=== PATIENT | female | born 1955 | race Caucasian/White ===

== ENCOUNTER 2020-11-07 18:26 | Inpatient (IN) | payer MEDICARE, MEDICAID ==
[~2020-11-07] VITALS: Ht 162.6 cm; Wt 106.1 kg
[~2020-11-07 18:26] MED LIST: ASPI-1406 PO; KEPP250 PO
[2020-11-07] MEDS ORDERED: CLONIDINE 0.1MG TABLET PO PRN (20:30)
[2020-11-07] MEDS ORDERED: IPRATROPIUM/ALBUTEROL 0.5-3(2.5)MG/3ML NEB HHN PRN (20:30)
[2020-11-07] MEDS ORDERED: NALOXONE HCL 0.4 MG/ML 1ML VIAL IV PRN (20:30)
[2020-11-07] MEDS ORDERED: MAGNESIUM/ALUMINUM HYDROXIDE/SIMETHICONE 30ML UDC PO PRN (20:30)
[2020-11-07] MEDS ORDERED: LEVETIRACETAM 250 MG in SODIUM CHLORIDE 0.9% 100 ML IV SCH (20:30)
[2020-11-07] MEDS ORDERED: ONDANSETRON HCL 4MG/2ML INJ IV PRN (20:30)
[2020-11-07] MEDS ORDERED: DEXTROSE 50% WATER 50ML SYRINGE IV PRN (20:30)
[2020-11-07] MEDS ORDERED: CEFTRIAXONE 1 G PREMIX 50 ML IV SCH (20:30)
[2020-11-07] MEDS ORDERED: DOCUSATE SODIUM 100MG CAPSULE PO PRN (20:30)
[2020-11-07 21:00] VITALS: BP 141/66
[2020-11-07] MEDS ORDERED: NALOXONE HCL 0.4MG/ML VIAL IV PRN (21:30)
[2020-11-07 22:00] VITALS: BP 141/66
[2020-11-07] MEDS: SODIUM CHLORIDE 0.9% 1,000 ML IV SCH (22:00)
[2020-11-07] MEDS: HYDROCODONE/ACETAMINOPHEN 5/325MG TABLET PO PRN (23:24)
[2020-11-07] MEDS: POLYETHYLENE GLYCOL 3350 (17GM) 1 DOSE PACK PO SCH (23:26)
[2020-11-07] MEDS: LEVETIRACETAM 500MG/5ML CUP PO SCH (23:26)
[2020-11-08] MEDS: HYDROCODONE/ACETAMINOPHEN 5/325MG TABLET PO PRN ×5 (05:52→21:48)
[2020-11-08] MEDS: BLOOD SUGAR DIAGNOSTIC STRIP TEST SCH ×4 (06:01→21:48)
[2020-11-08 07:21] LABS: BASOPHILS % 0.7 % (0.0-2.0); EOSINOPHILS % 4.7 % (0.0-5.0); HEMATOCRIT. 32.5 % (36.0-48.0); HEMOGLOBIN. 10.7 g/dL (12.0-16.0); LYMPHOCYTES % 37.5 % (20.0-50.0); MEAN PLATELET VOLUME 8.7 fl (7.4-10.4); MONOCYTES % 7.6 % (2.0-8.0); NEUTROPHILS % 49.5 % (40.0-76.0); PLATELET 114 x1000/uL (130-400); RED BLOOD CELL COUNT 3.46 mill/uL (4.2-5.4); RED CELL DISTRIBUTION WIDTH 14.9 % (11.6-14.6)
[2020-11-08 07:31] VITALS: BP 126/47
[2020-11-08 07:45] LABS: CHLORIDE 109 mEq/L (98-107)
[2020-11-08 07:55] LABS: TOTAL IRON BINDING CAPACITY 310 ug/dL (250-450)
[2020-11-08] MEDS: DOCUSATE SODIUM 100MG CAPSULE PO SCH ×2 (08:46→17:38)
[2020-11-08] MEDS: LEVETIRACETAM 500MG/5ML CUP PO SCH ×2 (08:46→21:46)
[2020-11-08] MEDS: ASPIRIN 81MG EC TABLET PO SCH (08:46)
[2020-11-08] MEDS: INSULIN LISPRO 100 UNITS/ML SUBCUT SCH ×4 (08:52→21:55)
[2020-11-08] MEDS: SODIUM CHLORIDE 0.9% 1,000 ML IV SCH ×2 (09:56→23:57)
[2020-11-08] MEDS: LIDOCAINE 5% PATCH TOP SCH (09:57)
[2020-11-08] MEDS: CEFTRIAXONE 1,000 MG in DEXTROSE 5% WATER 50 ML IV SCH (12:36)
[2020-11-08] MEDS: LACTULOSE 20G/30ML UDC PO SCH ×2 (17:40→21:45)
[2020-11-08 20:00] VITALS: BP 135/62
[2020-11-08] MEDS: POLYETHYLENE GLYCOL 3350 (17GM) 1 DOSE PACK PO SCH (21:46)
[2020-11-08] MEDS ORDERED: IOHEXOL-350 100 ML BOTTLE ONE (23:27)
[2020-11-09] MEDS: HYDROCODONE/ACETAMINOPHEN 5/325MG TABLET PO PRN ×4 (04:29→20:08)
[2020-11-09] MEDS: BLOOD SUGAR DIAGNOSTIC STRIP TEST SCH ×4 (05:50→20:11)
[2020-11-09] MEDS: INSULIN LISPRO 100 UNITS/ML SUBCUT SCH ×4 (06:30→21:46)
[2020-11-09 08:25] VITALS: BP 106/55
[2020-11-09] MEDS: LEVETIRACETAM 500MG/5ML CUP PO SCH ×2 (09:10→20:07)
[2020-11-09] MEDS: ASPIRIN 81MG EC TABLET PO SCH (09:11)
[2020-11-09] MEDS: DOCUSATE SODIUM 100MG CAPSULE PO SCH ×2 (09:11→16:50)
[2020-11-09] MEDS: LIDOCAINE 5% PATCH TOP SCH (09:12)
[2020-11-09] MEDS ORDERED: INSULIN GLARGINE UD 100 UNITS/ML SYR SUBCUT SCH (11:00)
[2020-11-09] MEDS: SODIUM CHLORIDE 0.9% 1,000 ML IV SCH ×2 (11:30→23:54)
[2020-11-09] MEDS: ACETAMINOPHEN 325MG TABLET PO PRN (12:11)
[2020-11-09] MEDS: CEFTRIAXONE 1,000 MG in DEXTROSE 5% WATER 50 ML IV SCH (14:07)
[2020-11-09 20:00] VITALS: BP 133/47
[2020-11-09] MEDS: POLYETHYLENE GLYCOL 3350 (17GM) 1 DOSE PACK PO SCH (20:08)
[2020-11-10] MEDS: BLOOD SUGAR DIAGNOSTIC STRIP TEST SCH ×4 (06:01→20:58)
[2020-11-10] MEDS: HYDROCODONE/ACETAMINOPHEN 5/325MG TABLET PO PRN ×4 (06:01→20:59)
[2020-11-10] MEDS: INSULIN LISPRO 100 UNITS/ML SUBCUT SCH ×4 (06:34→21:10)
[2020-11-10 08:23] VITALS: BP 113/49
[2020-11-10] MEDS: ASPIRIN 81MG EC TABLET PO SCH (08:47)
[2020-11-10] MEDS: DOCUSATE SODIUM 100MG CAPSULE PO SCH ×2 (08:47→16:54)
[2020-11-10] MEDS: LEVETIRACETAM 500MG/5ML CUP PO SCH ×2 (08:47→20:58)
[2020-11-10] MEDS: LIDOCAINE 5% PATCH TOP SCH (08:48)
[2020-11-10] MEDS: SODIUM CHLORIDE 0.9% 1,000 ML IV SCH ×2 (12:27→21:06)
[2020-11-10] MEDS: ACETAMINOPHEN 325MG TABLET PO PRN (15:43)
[2020-11-10] MEDS: METFORMIN HCL 500MG TABLET PO SCH (16:55)
[2020-11-10 20:00] VITALS: BP 141/61
[2020-11-10] MEDS: POLYETHYLENE GLYCOL 3350 (17GM) 1 DOSE PACK PO SCH (20:58)
[2020-11-11] MEDS: BLOOD SUGAR DIAGNOSTIC STRIP TEST SCH ×4 (06:09→20:59)
[2020-11-11] MEDS: INSULIN LISPRO 100 UNITS/ML SUBCUT SCH ×4 (06:25→21:11)
[2020-11-11 08:00] VITALS: BP 124/77
[2020-11-11] MEDS: DOCUSATE SODIUM 100MG CAPSULE PO SCH ×2 (08:25→17:00)
[2020-11-11] MEDS: METFORMIN HCL 500MG TABLET PO SCH ×2 (08:25→17:00)
[2020-11-11] MEDS: ASPIRIN 81MG EC TABLET PO SCH (08:25)
[2020-11-11] MEDS: LIDOCAINE 5% PATCH TOP SCH (08:26)
[2020-11-11] MEDS: LEVETIRACETAM 500MG/5ML CUP PO SCH ×2 (09:12→20:59)
[2020-11-11] MEDS: HYDROCODONE/ACETAMINOPHEN 5/325MG TABLET PO PRN ×2 (12:36→18:00)
[2020-11-11] MEDS: SODIUM CHLORIDE 0.9% 1,000 ML IV SCH (14:10)
[2020-11-11 20:00] VITALS: BP 124/67
[2020-11-11] MEDS: POLYETHYLENE GLYCOL 3350 (17GM) 1 DOSE PACK PO SCH (20:59)
[2020-11-12] MEDS: SODIUM CHLORIDE 0.9% 1,000 ML IV SCH ×2 (04:30→16:49)
[2020-11-12] MEDS: BLOOD SUGAR DIAGNOSTIC STRIP TEST SCH ×4 (06:06→21:20)
[2020-11-12] MEDS: INSULIN LISPRO 100 UNITS/ML SUBCUT SCH ×4 (06:25→21:50)
[2020-11-12 06:44] LABS: BASOPHILS % 0.7 % (0.0-2.0); EOSINOPHILS % 2.8 % (0.0-5.0); HEMATOCRIT. 32.8 % (36.0-48.0); HEMOGLOBIN. 11.2 g/dL (12.0-16.0); LYMPHOCYTES % 36.7 % (20.0-50.0); MEAN CORPUSCULAR HEMOGLOBIN 31.9 pg (28.0-32.0); MEAN CORPUSCULAR VOLUME 93.7 fL (81.0-99.0); MEAN PLATELET VOLUME 8.4 fl (7.4-10.4); MONOCYTES % 7.8 % (2.0-8.0); PLATELET 119 x1000/uL (130-400); RED CELL DISTRIBUTION WIDTH 14.7 % (11.6-14.6)
[2020-11-12 06:55] LABS: CHLORIDE 110 mEq/L (98-107)
[2020-11-12 08:00] VITALS: BP 118/40
[2020-11-12] MEDS: DOCUSATE SODIUM 100MG CAPSULE PO SCH ×2 (08:45→16:49)
[2020-11-12] MEDS: METFORMIN HCL 500MG TABLET PO SCH ×2 (08:45→16:49)
[2020-11-12] MEDS: ASPIRIN 81MG EC TABLET PO SCH (08:45)
[2020-11-12] MEDS: LIDOCAINE 5% PATCH TOP SCH (08:46)
[2020-11-12] MEDS: LEVETIRACETAM 500MG/5ML CUP PO SCH ×2 (08:46→21:43)
[2020-11-12] MEDS: HYDROCODONE/ACETAMINOPHEN 5/325MG TABLET PO PRN ×2 (08:48→14:08)
[2020-11-12] MEDS ORDERED: TRIAMCINOLONE ACETONIDE 40MG/ML 1ML VIAL IM SCH (10:00)
[2020-11-12] MEDS ORDERED: BUPIVACAINE HCL 0.5% (5MG/ML) 50ML IR SCH (10:00)
[2020-11-12] MEDS ORDERED: LIDOCAINE HCL 1% 20ML VIAL (Pyxis) INJ INFIL SCH (10:00)
[2020-11-12] MEDS ORDERED: ETHYL CHLORIDE CAN TOP SCH (10:00)
[2020-11-12 19:10] LABS: 25-HYDROXY VITAMIN D3 10 ng/mL (.)
[2020-11-12 20:00] VITALS: BP 125/66
[2020-11-12] MEDS: POLYETHYLENE GLYCOL 3350 (17GM) 1 DOSE PACK PO SCH (21:42)
[2020-11-12] MEDS: ACETAMINOPHEN 325MG TABLET PO PRN (21:43)
[2020-11-13] MEDS: SODIUM CHLORIDE 0.9% 1,000 ML IV SCH ×3 (05:58→19:34)
[2020-11-13] MEDS: BLOOD SUGAR DIAGNOSTIC STRIP TEST SCH ×4 (05:59→21:55)
[2020-11-13] MEDS: INSULIN LISPRO 100 UNITS/ML SUBCUT SCH ×4 (06:02→22:12)
[2020-11-13 07:58] VITALS: BP 98/42
[2020-11-13] MEDS: HYDROCODONE/ACETAMINOPHEN 5/325MG TABLET PO PRN ×3 (08:27→22:17)
[2020-11-13] MEDS: DOCUSATE SODIUM 100MG CAPSULE PO SCH ×2 (09:00→17:18)
[2020-11-13] MEDS: LEVETIRACETAM 500MG/5ML CUP PO SCH ×2 (09:03→22:07)
[2020-11-13] MEDS: METFORMIN HCL 500MG TABLET PO SCH ×2 (09:03→17:17)
[2020-11-13] MEDS: ASPIRIN 81MG EC TABLET PO SCH (09:03)
[2020-11-13] MEDS: LIDOCAINE 5% PATCH TOP SCH (09:04)
[2020-11-13] MEDS ORDERED: ERGOCALCIFEROL 50000UNITS CAPSULE PO SCH (14:45)
[2020-11-13 20:00] VITALS: BP 130/69
[2020-11-13] MEDS: POLYETHYLENE GLYCOL 3350 (17GM) 1 DOSE PACK PO SCH (22:06)
[2020-11-14] MEDS: BLOOD SUGAR DIAGNOSTIC STRIP TEST SCH ×4 (06:03→21:28)
[2020-11-14] MEDS: INSULIN LISPRO 100 UNITS/ML SUBCUT SCH ×4 (06:15→21:46)
[2020-11-14] MEDS ORDERED: NALOXONE HCL 0.4MG/ML VIAL IV PRN (07:45)
[2020-11-14 08:26] VITALS: BP 116/48
[2020-11-14] MEDS: METFORMIN HCL 500MG TABLET PO SCH ×2 (08:56→16:38)
[2020-11-14] MEDS: HYDROCODONE/ACETAMINOPHEN 5/325MG TABLET PO PRN ×3 (08:56→21:34)
[2020-11-14] MEDS: ASPIRIN 81MG EC TABLET PO SCH (08:56)
[2020-11-14] MEDS: LEVETIRACETAM 500MG/5ML CUP PO SCH ×2 (08:59→21:33)
[2020-11-14] MEDS: DOCUSATE SODIUM 100MG CAPSULE PO SCH ×2 (09:00→16:38)
[2020-11-14] MEDS: LIDOCAINE 5% PATCH TOP SCH (09:02)
[2020-11-14] MEDS ORDERED: INSULIN GLARGINE UD 100 UNITS/ML SYR SUBCUT SCH (10:00)
[2020-11-14] MEDS: SODIUM CHLORIDE 0.9% 1,000 ML IV SCH (16:30)
[2020-11-14 20:00] VITALS: BP 127/50
[2020-11-14] MEDS: POLYETHYLENE GLYCOL 3350 (17GM) 1 DOSE PACK PO SCH (21:00)
[2020-11-15] MEDS: SODIUM CHLORIDE 0.9% 1,000 ML IV SCH ×2 (05:00→17:25)
[2020-11-15] MEDS: BLOOD SUGAR DIAGNOSTIC STRIP TEST SCH ×4 (06:02→21:10)
[2020-11-15] MEDS: INSULIN LISPRO 100 UNITS/ML SUBCUT SCH ×7 (06:33→22:09)
[2020-11-15] MEDS: HYDROCODONE/ACETAMINOPHEN 5/325MG TABLET PO PRN ×3 (07:38→21:10)
[2020-11-15 08:26] VITALS: BP 131/57
[2020-11-15] MEDS: DOCUSATE SODIUM 100MG CAPSULE PO SCH ×2 (08:40→17:24)
[2020-11-15] MEDS: METFORMIN HCL 500MG TABLET PO SCH ×2 (08:40→17:24)
[2020-11-15] MEDS: LIDOCAINE 5% PATCH TOP SCH (08:40)
[2020-11-15] MEDS: ASPIRIN 81MG EC TABLET PO SCH (08:40)
[2020-11-15] MEDS: LEVETIRACETAM 500MG/5ML CUP PO SCH ×2 (08:41→21:07)
[2020-11-15] MEDS: INSULIN GLARGINE UD 100 UNITS/ML SYR SUBCUT SCH (10:24)
[2020-11-15] MEDS: POLYETHYLENE GLYCOL 3350 (17GM) 1 DOSE PACK PO SCH (21:07)
[2020-11-16 00:24] VITALS: BP 112/34
[2020-11-16] MEDS: SODIUM CHLORIDE 0.9% 1,000 ML IV SCH ×2 (06:00→18:30)
[2020-11-16] MEDS: BLOOD SUGAR DIAGNOSTIC STRIP TEST SCH ×4 (06:10→21:26)
[2020-11-16] MEDS: HYDROCODONE/ACETAMINOPHEN 5/325MG TABLET PO PRN ×3 (06:24→21:26)
[2020-11-16] MEDS: INSULIN LISPRO 100 UNITS/ML SUBCUT SCH ×7 (06:39→21:44)
[2020-11-16 08:00] VITALS: BP 145/71
[2020-11-16] MEDS: ASPIRIN 81MG EC TABLET PO SCH (08:58)
[2020-11-16] MEDS: METFORMIN HCL 500MG TABLET PO SCH ×2 (08:58→17:02)
[2020-11-16] MEDS: LEVETIRACETAM 500MG/5ML CUP PO SCH ×2 (08:58→21:21)
[2020-11-16] MEDS: DOCUSATE SODIUM 100MG CAPSULE PO SCH ×2 (08:58→17:02)
[2020-11-16] MEDS: LIDOCAINE 5% PATCH TOP SCH (09:07)
[2020-11-16] MEDS: INSULIN GLARGINE UD 100 UNITS/ML SYR SUBCUT SCH (11:08)
[2020-11-16] MEDS ORDERED: DOCU-150 PO (13:44)
[2020-11-16] MEDS ORDERED: LANTUSUD SUBCUT (13:44)
[2020-11-16] MEDS ORDERED: METF500T PO (13:44)
[2020-11-16] MEDS ORDERED: KEPPSOL PO (13:44)
[2020-11-16] MEDS ORDERED: INSLIS SUBCUT ×2 (13:44)
[2020-11-16] MEDS ORDERED: ASPI-1406 PO (13:44)
[2020-11-16 20:00] VITALS: BP 151/48
[2020-11-16] MEDS: POLYETHYLENE GLYCOL 3350 (17GM) 1 DOSE PACK PO SCH ×2 (21:26→21:33)
[2020-11-17] MEDS: INSULIN LISPRO 100 UNITS/ML SUBCUT SCH ×4 (06:14→12:04)
[2020-11-17] MEDS: BLOOD SUGAR DIAGNOSTIC STRIP TEST SCH ×2 (06:14→11:55)
[2020-11-17] MEDS: SODIUM CHLORIDE 0.9% 1,000 ML IV SCH (06:14)
[2020-11-17 07:48] VITALS: BP 108/49
[2020-11-17 11:43] VITALS: BP 108/49
[2020-11-17] MEDS: DOCUSATE SODIUM 100MG CAPSULE PO SCH (11:47)
[2020-11-17] MEDS: METFORMIN HCL 500MG TABLET PO SCH (11:47)
[2020-11-17] MEDS: ASPIRIN 81MG EC TABLET PO SCH (11:47)
[2020-11-17] MEDS: LEVETIRACETAM 500MG/5ML CUP PO SCH (11:48)
[2020-11-17 11:50] VITALS: BP 108/49
[2020-11-17] MEDS: LIDOCAINE 5% PATCH TOP SCH (11:50)
[2020-11-17] MEDS: INSULIN GLARGINE UD 100 UNITS/ML SYR SUBCUT SCH (11:53)
== END 2020-11-17 14:00 | disposition home health service (06) | DRG 56 ==
PROVIDERS: ADMIT Physical Medicine & Rehabilitation Spinal Cord Injury Medicine; ATTEND Internal Medicine
PROC: 3E0U33Z Introduction of Anti-inflammatory into Joints, Percutaneous Approach (ICD-10-PCS; principal; 2020-11-13)
PROC: 3E0U3BZ Introduction of Anesthetic Agent into Joints, Percutaneous Approach (ICD-10-PCS; 2020-11-13)
DX: I69.351 Hemiplegia and hemiparesis following cerebral infarction affecting right dominant side (principal); I63.9 Cerebral infarction, unspecified; N39.0 Urinary tract infection, site not specified; N17.9 Acute kidney failure, unspecified; R44.0 Auditory hallucinations; Z68.41 Body mass index [BMI] 40.0-44.9, adult; R47.01 Aphasia; G40.909 Epilepsy, unspecified, not intractable, without status epilepticus; E78.00 Pure hypercholesterolemia, unspecified; G89.4 Chronic pain syndrome; Z96.642 Presence of left artificial hip joint; Z96.653 Presence of artificial knee joint, bilateral; M54.2 Cervicalgia; D69.6 Thrombocytopenia, unspecified; R53.81 Other malaise; D64.9 Anemia, unspecified; M75.41 Impingement syndrome of right shoulder; E11.65 Type 2 diabetes mellitus with hyperglycemia; I12.9 Hypertensive chronic kidney disease with stage 1 through stage 4 chronic kidney disease, or unspecified chronic kidney disease; F19.10 Other psychoactive substance abuse, uncomplicated; F16.10 Hallucinogen abuse, uncomplicated; Z60.2 Problems related to living alone; R26.89 Other abnormalities of gait and mobility; I27.21 Secondary pulmonary arterial hypertension; H53.2 Diplopia; E66.01 Morbid (severe) obesity due to excess calories; M15.9 Polyosteoarthritis, unspecified; E55.9 Vitamin D deficiency, unspecified; G47.30 Sleep apnea, unspecified; L30.9 Dermatitis, unspecified; M54.5 Low back pain; I67.1 Cerebral aneurysm, nonruptured; F39 Unspecified mood [affective] disorder; N18.2 Chronic kidney disease, stage 2 (mild); E11.22 Type 2 diabetes mellitus with diabetic chronic kidney disease; M75.01 Adhesive capsulitis of right shoulder; Z80.3 Family history of malignant neoplasm of breast; Z82.49 Family history of ischemic heart disease and other diseases of the circulatory system; Z96.82 Presence of neurostimulator; Z79.899 Other long term (current) drug therapy; Z79.82 Long term (current) use of aspirin; I69.322 Dysarthria following cerebral infarction; Z83.3 Family history of diabetes mellitus; Z90.710 Acquired absence of both cervix and uterus; R47.1 Dysarthria and anarthria
CPT/HCPCS: 36415; 70496; 73030; 80053; 82306; 82565; 82607; 82728; 82746; 82962; 83540; 83550; 84134; 84443; 84520; 85025; 92523; 92610; 93970; 97110; 97112; 97116; 97129; 97130; 97162; 97166; 97530; 97535; J0696; J1815; J3301; J3490; J7030; J7060; Q9967

== ENCOUNTER 2020-11-19 12:12 | Inpatient (IN) | payer MEDICARE, MEDICAID ==
[~2020-11-19] VITALS: Ht 162.6 cm; Wt 103.4 kg
[2020-11-19] MEDS: INSULIN GLARGINE UD 100 UNITS/ML SYR SUBCUT SCH (10:00)
[~2020-11-19 12:12] MED LIST changes: +DOCU-150 PO; +INSLIS SUBCUT; -KEPP250 PO; +KEPPSOL PO; +LANTUSUD SUBCUT; +METF500T PO
[2020-11-19] MEDS ORDERED: ASPIRIN 81MG TABLET PO ONE (14:15)
[2020-11-19 14:37] LABS: CHLORIDE 110 mEq/L (98-107)
[2020-11-19 14:41] LABS: ETHANOL BLOOD < 10 mg/dL; INR 1.1; PROTHROMBIN TIME 11.7 sec (9.6-11.0)
[2020-11-19 14:44] LABS: LDL CHOLESTEROL 82 mg/dL (5-100)
[2020-11-19 15:17] LABS: BASOPHILS % 0.9 % (0.0-2.0); HEMATOCRIT. 36.2 % (36.0-48.0); HEMOGLOBIN. 12.2 g/dL (12.0-16.0); MEAN CORPUSCULAR HEMOGLOBIN 31.9 pg (28.0-32.0); MEAN CORPUSCULAR VOLUME 94.9 fL (81.0-99.0); MONOCYTES % 8.1 % (2.0-8.0); PLATELET 174 x1000/uL (130-400); RED BLOOD CELL COUNT 3.82 mill/uL (4.2-5.4); RED CELL DISTRIBUTION WIDTH 14.9 % (11.6-14.6)
[2020-11-19] MEDS ORDERED: ACETAMINOPHEN 325MG TABLET PO PRN ×2 (16:45)
[2020-11-19] MEDS ORDERED: GUAIFENESIN 200MG/10ML SUGAR FREE UDC PO PRN (16:45)
[2020-11-19] MEDS ORDERED: MAGNESIUM/ALUMINUM HYDROXIDE/SIMETHICONE 30ML UDC PO PRN (16:45)
[2020-11-19] MEDS ORDERED: DEXTROSE 50% WATER 50ML SYRINGE IV PRN (16:45)
[2020-11-19] MEDS ORDERED: NA PHOS,M-B/NA PHOS,DI-BA ENEMA 118ML PR PRN (16:45)
[2020-11-19] MEDS ORDERED: CLONIDINE 0.1MG TABLET PO PRN (16:45)
[2020-11-19] MEDS ORDERED: IPRATROPIUM/ALBUTEROL 0.5-3(2.5)MG/3ML NEB NEB PRN (16:45)
[2020-11-19] MEDS ORDERED: NITROGLYCERIN 0.4MG TABLET SL SL PRN (16:45)
[2020-11-19] MEDS ORDERED: DOCUSATE SODIUM 100MG CAPSULE PO PRN (16:45)
[2020-11-19] MEDS ORDERED: ONDANSETRON HCL 4MG/2ML INJ IV PRN (16:45)
[2020-11-19] MEDS ORDERED: ENOXAPARIN 30MG/0.3ML SYR SUBCUT SCH (20:00)
[2020-11-19] MEDS ORDERED: ZOLPIDEM TARTRATE 5MG TABLET PO PRN (21:00)
[2020-11-19] MEDS: BLOOD SUGAR DIAGNOSTIC STRIP TEST SCH (21:00)
[2020-11-19 21:34] LABS: FOLIC ACID (FOLATE) SERUM 13.7 ng/mL (>5.38)
[2020-11-19 22:00] VITALS: BP 118/46
[2020-11-19] MEDS: FAMOTIDINE 20MG TABLET PO SCH (23:00)
[2020-11-19] MEDS: ASCORBIC ACID 500 MG TABLET PO SCH (23:00)
[2020-11-19] MEDS: LEVETIRACETAM 500MG TABLET PO SCH (23:00)
[2020-11-19] MEDS: SODIUM CHLORIDE 0.9% 1,000 ML IV SCH (23:01)
[2020-11-20] VITALS: BP 115/51
[2020-11-20] MEDS ORDERED: CLOP75TA4 PO (00:21)
[2020-11-20 04:00] VITALS: BP 115/82
[2020-11-20] MEDS: INSULIN LISPRO 100 UNITS/ML SUBCUT SCH ×3 (06:00→18:30)
[2020-11-20] MEDS: BLOOD SUGAR DIAGNOSTIC STRIP TEST SCH ×4 (06:01→21:23)
[2020-11-20 06:32] LABS: BASOPHILS % 1.1 % (0.0-2.0); EOSINOPHILS % 1.1 % (0.0-5.0); HEMATOCRIT. 39.2 % (36.0-48.0); HEMOGLOBIN. 12.9 g/dL (12.0-16.0); LYMPHOCYTES % 27.9 % (20.0-50.0); MEAN CORPUSCULAR HEMOGLOBIN 31.2 pg (28.0-32.0); MEAN CORPUSCULAR VOLUME 95.1 fL (81.0-99.0); MEAN PLATELET VOLUME 8.9 fl (7.4-10.4); MONOCYTES % 8.2 % (2.0-8.0); NEUTROPHILS % 61.7 % (40.0-76.0); PLATELET 145 x1000/uL (130-400); RED BLOOD CELL COUNT 4.12 mill/uL (4.2-5.4); RED CELL DISTRIBUTION WIDTH 14.5 % (11.6-14.6)
[2020-11-20 07:22] LABS: CHLORIDE 113 mEq/L (98-107)
[2020-11-20 07:37] LABS: PHOSPHORUS 3.7 mg/dL (2.5-4.9)
[2020-11-20 07:39] LABS: CREATINE KINASE 103 IU/L (26-192)
[2020-11-20 07:43] LABS: CREATINE KINASE MB FRACTION < 1.0 ng/mL (0.5-3.6)
[2020-11-20 08:00] VITALS: BP 110/56
[2020-11-20] MEDS: ASCORBIC ACID 500 MG TABLET PO SCH ×2 (08:50→21:23)
[2020-11-20] MEDS: LEVETIRACETAM 500MG TABLET PO SCH ×2 (08:50→21:22)
[2020-11-20] MEDS: SODIUM CHLORIDE 0.9% 1,000 ML IV SCH (08:50)
[2020-11-20] MEDS: ZINC SULFATE 220 MG ( 50 ) CAPSULE PO SCH (08:50)
[2020-11-20] MEDS: KETOROLAC 15MG/ML VIAL IV PRN ×2 (08:50→21:22)
[2020-11-20] MEDS: CHOLECALCIFEROL (D3) 1000 UNIT TABLET PO SCH (08:50)
[2020-11-20] MEDS: ASPIRIN 325MG EC TABLET PO SCH (08:50)
[2020-11-20] MEDS: INSULIN GLARGINE UD 100 UNITS/ML SYR SUBCUT SCH (09:13)
[2020-11-20 10:20] LABS: CLARITY URINE CLEAR (CLEAR); COLOR URINE YELLOW (YELLOW); KETONES URINE NEGATIVE (NEGATIVE); LEUKOCYTE ESTERASE URINE NEGATIVE (NEGATIVE); NITRITE URINE NEGATIVE (NEGATIVE); OCCULT BLOOD URINE NEGATIVE (NEGATIVE); PROTEIN URINE NEGATIVE (NEGATIVE); SPECIFIC GRAVITY URINE 1.017 (1.005-1.030)
[2020-11-20] MEDS ORDERED: SODIUM POLYSTYRENE SULFONATE 15 G/60 ML BOT PO SCH (11:00)
[2020-11-20 12:00] VITALS: BP 110/47
[2020-11-20 16:00] VITALS: BP 119/53
[2020-11-20 20:00] VITALS: BP 120/57
[2020-11-20] MEDS: ATORVASTATIN CALCIUM 10MG TABLET PO SCH (21:22)
[2020-11-20] MEDS: FAMOTIDINE 20MG TABLET PO SCH (21:22)
[2020-11-20] MEDS: ENOXAPARIN 30MG/0.3ML SYR SUBCUT SCH (21:22)
[2020-11-21] VITALS: BP 123/51
[2020-11-21] MEDS: BLOOD SUGAR DIAGNOSTIC STRIP TEST SCH ×4 (06:05→21:00)
[2020-11-21] MEDS: INSULIN LISPRO 100 UNITS/ML SUBCUT SCH ×3 (06:11→18:23)
[2020-11-21] MEDS: SODIUM CHLORIDE 0.9% 1,000 ML IV SCH ×2 (06:14→12:43)
[2020-11-21 06:42] LABS: BASOPHILS % 0.9 % (0.0-2.0); EOSINOPHILS % 1.7 % (0.0-5.0); HEMATOCRIT. 35.2 % (36.0-48.0); HEMOGLOBIN. 11.6 g/dL (12.0-16.0); LYMPHOCYTES % 29.6 % (20.0-50.0); MEAN CORPUSCULAR HEMOGLOBIN 31.2 pg (28.0-32.0); MEAN CORPUSCULAR VOLUME 94.3 fL (81.0-99.0); MONOCYTES % 8.4 % (2.0-8.0); NEUTROPHILS % 59.4 % (40.0-76.0); PLATELET 123 x1000/uL (130-400); RED BLOOD CELL COUNT 3.73 mill/uL (4.2-5.4); RED CELL DISTRIBUTION WIDTH 14.4 % (11.6-14.6)
[2020-11-21 06:48] LABS: CHLORIDE 113 mEq/L (98-107)
[2020-11-21 08:00] VITALS: BP 132/69
[2020-11-21] MEDS: ENOXAPARIN 30MG/0.3ML SYR SUBCUT SCH ×2 (10:32→22:22)
[2020-11-21] MEDS: ZINC SULFATE 220 MG ( 50 ) CAPSULE PO SCH (10:32)
[2020-11-21] MEDS: ASPIRIN 325MG EC TABLET PO SCH (10:32)
[2020-11-21] MEDS: CHOLECALCIFEROL (D3) 1000 UNIT TABLET PO SCH (10:33)
[2020-11-21] MEDS: LEVETIRACETAM 500MG TABLET PO SCH ×2 (10:33→22:22)
[2020-11-21] MEDS: ASCORBIC ACID 500 MG TABLET PO SCH ×2 (10:33→22:22)
[2020-11-21] MEDS: KETOROLAC 15MG/ML VIAL IV PRN ×2 (10:36→16:30)
[2020-11-21] MEDS: INSULIN GLARGINE UD 100 UNITS/ML SYR SUBCUT SCH (10:38)
[2020-11-21 12:00] VITALS: BP 125/78
[2020-11-21 16:00] VITALS: BP 135/65
[2020-11-21 20:00] VITALS: BP 129/48
[2020-11-21] MEDS: FAMOTIDINE 20MG TABLET PO SCH (22:22)
[2020-11-21] MEDS: ATORVASTATIN CALCIUM 10MG TABLET PO SCH (22:22)
[2020-11-22] VITALS: BP 145/61
[2020-11-22] MEDS: SODIUM CHLORIDE 0.9% 1,000 ML IV SCH (00:40)
[2020-11-22 04:00] VITALS: BP 136/58
[2020-11-22] MEDS: BLOOD SUGAR DIAGNOSTIC STRIP TEST SCH ×2 (06:17→12:10)
[2020-11-22] MEDS: KETOROLAC 15MG/ML VIAL IV PRN (06:17)
[2020-11-22 08:00] VITALS: BP 123/53
[2020-11-22] MEDS: ASCORBIC ACID 500 MG TABLET PO SCH (08:56)
[2020-11-22] MEDS: ASPIRIN 325MG EC TABLET PO SCH (08:56)
[2020-11-22] MEDS: CHOLECALCIFEROL (D3) 1000 UNIT TABLET PO SCH (08:56)
[2020-11-22] MEDS: ZINC SULFATE 220 MG ( 50 ) CAPSULE PO SCH (08:56)
[2020-11-22] MEDS: LEVETIRACETAM 500MG TABLET PO SCH (08:56)
[2020-11-22] MEDS: ENOXAPARIN 30MG/0.3ML SYR SUBCUT SCH (08:58)
[2020-11-22] MEDS: INSULIN LISPRO 100 UNITS/ML SUBCUT SCH (09:01)
[2020-11-22] MEDS: INSULIN GLARGINE UD 100 UNITS/ML SYR SUBCUT SCH (11:35)
[2020-11-22 12:00] VITALS: BP 125/64
[2020-11-22 12:37] VITALS: BP 125/64
== END 2020-11-22 14:30 | DRG 64 ==
LOC: ER 12:12 → EDBEDREQSVC 16:32 → EDBEDREQ 16:33 → SUPCPDRO 18:15 → ENRESERV 19:22 → 8WST 22:38
PROVIDERS: ADMIT Internal Medicine; ATTEND Internal Medicine
DX: I63.9 Cerebral infarction, unspecified (principal); N17.0 Acute kidney failure with tubular necrosis; G45.9 Transient cerebral ischemic attack, unspecified; E11.9 Type 2 diabetes mellitus without complications; E78.5 Hyperlipidemia, unspecified; I10 Essential (primary) hypertension; E66.9 Obesity, unspecified; E78.00 Pure hypercholesterolemia, unspecified; G40.909 Epilepsy, unspecified, not intractable, without status epilepticus; Z79.4 Long term (current) use of insulin; Z82.49 Family history of ischemic heart disease and other diseases of the circulatory system; Z79.82 Long term (current) use of aspirin; Z79.899 Other long term (current) drug therapy; Z79.1 Long term (current) use of non-steroidal anti-inflammatories (NSAID); Z68.39 Body mass index [BMI] 39.0-39.9, adult; R29.703 NIHSS score 3
CPT/HCPCS: 36415; 71045; 80053; 80061; 80320; 81003; 82550; 82553; 82607; 82746; 82962; 83036; 83540; 83550; 83721; 83735; 83880; 84100; 84439; 84443; 84484; 85025; 87186; 93005; 93970; 97162; 97166; 99291; J1650; J1815; J1885; G0480